=== PATIENT | female | born 1985 | race African-American/Black ===

== ENCOUNTER 2024-11-12 15:01 | Emergency (ER) | payer BC ==
[~2024-11-12] VITALS: Ht 172.7 cm; Wt 53.2 kg
[2024-11-12] MEDS ORDERED: TAMIFLU75 MG PO (15:38)
[2024-11-12] MEDS ORDERED: AMOXICILLIN500 MG PO (15:40)
[2024-11-12 16:10] VITALS: PULSE 74; RESP 18; TEMP 99; O2SAT 99
== END 2024-11-12 16:10 | disposition home or self-care (01) ==
LOC: FSED 15:06
DX: R05.9 Cough, unspecified (principal); J02.0 Streptococcal pharyngitis; Z20.89 Contact with and (suspected) exposure to other communicable diseases; Z11.52 Encounter for screening for COVID-19
CPT/HCPCS: 0223U; 83518; 87400; 99283